=== PATIENT | female | born 1950 | race Caucasian/White ===

== ENCOUNTER → 2016-12-09 | Outpatient (CLI) | payer MEDICARE, BC ==
[~2016-12-09] MED LIST: ASMANEX220 MC1 INH; DISALCID500 MG PO; LIPITOR20 M1 PO; NASONEX NASAL S17 GM NOSE; NITROSTAT0.4 MG SL; OSCAL + D500 MG PO; PROTONIX40 MG PO; RHEUMATREX2.5 MG PO; SEREVENT DISKU50 MCG INH; SINGULAIR10 MG PO; WOMEN'S DAILY1 EAC3 PO; XOPENEX HF45 MCG/INH INH
== END | disposition disaster alternative care site (69) ==
LOC: GBCOE 13:11
DX: Z12.31 Encounter for screening mammogram for malignant neoplasm of breast (principal)
CPT/HCPCS: G0202